=== PATIENT | female | born 1950 | race Asian ===

== ENCOUNTER 2016-08-08 13:53 | Emergency (ER) | payer SELFPAY ==
[~2016-08-08] VITALS: Ht 154.9 cm; Wt 75.6 kg
[~2016-08-08 13:53] MED LIST: ANAS1TAB PO; CALCIUM PO; LINA5TAB PO; LISI-167 PO; METF10002 PO; METO50TA82 PO; OMEP40CA6 PO; SIMV20TA3 PO
[2016-08-08] MEDS ORDERED: SODIUM CHLORIDE 0.9% 1,000 ML IV ONE (15:47)
[2016-08-08] MEDS ORDERED: ONDANSETRON 2MG/ML, 2ML IVPush ONE (16:00)
[2016-08-08 16:09] LABS: HEMOGLOBIN 13.3 g/dL (11.7-16.4)
[2016-08-08] MEDS ORDERED: MORPHINE SULFATE 4 MG/ML, 1ML ONE ×2 (16:09→17:15)
[2016-08-08] MEDS ORDERED: ONDANSETRON 2MG/ML, 2ML ONE (16:09)
[2016-08-08] MEDS: MORPHINE SULFATE 4 MG/ML, 1ML IVPush PRN ×2 (16:21→17:17)
[2016-08-08 16:22] LABS: ASPARTATE AMINO TRANSFERASE 11 U/L (15-37); BLOOD UREA NITROGEN 11 mg/dL (7-18)
[2016-08-08 16:29] LABS: IS PT STATUS REG ER OR PRE ER? YES
[2016-08-08 18:08] VITALS: BP 166/90
== END 2016-08-08 18:10 | disposition home or self-care (01) ==
LOC: ED 17:22
DX: I89.0 Lymphedema, not elsewhere classified (principal); M79.604 Pain in right leg; M79.605 Pain in left leg; M79.622 Pain in left upper arm; I10 Essential (primary) hypertension; E11.9 Type 2 diabetes mellitus without complications; E78.5 Hyperlipidemia, unspecified; K21.9 Gastro-esophageal reflux disease without esophagitis; Z85.3 Personal history of malignant neoplasm of breast; Z88.6 Allergy status to analgesic agent
CPT/HCPCS: 36415; 71010; 80053; 83880; 84484; 85025; 85610; 85730; 93005; 93970; 93971; 96361; 96374; 96375; 99285; J2405; J7030

== ENCOUNTER 2016-09-12 11:08 | Emergency (ER) | payer SELFPAY ==
[~2016-09-12] VITALS: Ht 165.1 cm; Wt 75.0 kg
[2016-09-12] MEDS ORDERED: FAMOTIDINE 20 MG/2 ML IVPush ONE (12:00)
[2016-09-12] MEDS ORDERED: MORPHINE SULFATE 4 MG/ML, 1ML IVPush PRN (12:00)
[2016-09-12] MEDS ORDERED: SODIUM CHLORIDE FLUSH 10ML SYR IVF ONE (12:00)
[2016-09-12] MEDS ORDERED: SODIUM CHLORIDE 0.9% 1,000ML IVBOLUS ONE (12:00)
[2016-09-12] MEDS ORDERED: MORPHINE SULFATE 4 MG/ML, 1ML ONE (12:19)
[2016-09-12] MEDS ORDERED: FAMOTIDINE 20 MG/2 ML ONE (12:19)
[2016-09-12 12:34] LABS: HEMOGLOBIN 14.1 g/dL (11.7-16.4)
[2016-09-12 12:45] LABS: BLOOD UREA NITROGEN 10 mg/dL (7-18)
[2016-09-12 12:48] LABS: ASPARTATE AMINO TRANSFERASE 12 U/L (15-37)
[2016-09-12] MEDS ORDERED: HYDROmorphone 1 MG/ML, 1ML ONE (14:14)
[2016-09-12] MEDS ORDERED: HYDROmorphone 2 MG/ML, 1ML IVPush PRN (14:30)
[2016-09-12 15:20] LABS: IS PT STATUS REG ER OR PRE ER? YES
[2016-09-12] MEDS ORDERED: OMNIPAQUE 350 MG/ML, 100ML BOTTLE ONE (15:43)
[2016-09-12 17:07] VITALS: BP 138/78
== END 2016-09-12 17:34 | disposition home or self-care (01) ==
LOC: ED 16:26
DX: R07.89 Other chest pain (principal); R10.30 Lower abdominal pain, unspecified; R30.0 Dysuria; E11.9 Type 2 diabetes mellitus without complications; E78.5 Hyperlipidemia, unspecified; F17.200 Nicotine dependence, unspecified, uncomplicated; I10 Essential (primary) hypertension; K21.9 Gastro-esophageal reflux disease without esophagitis; Z88.6 Allergy status to analgesic agent
CPT/HCPCS: 36415; 71010; 71275; 74177; 80053; 81003; 83605; 84145; 84484; 85025; 85610; 85730; 87040; 87210; 87491; 87591; 87808; 93005; 93971; 96361; 96374; 96375; 99285; J1170; J7030; Q9967; S0028

== ENCOUNTER 2016-10-09 14:40 | Emergency (ER) | payer MEDICARE ==
[~2016-10-09] VITALS: Ht 160 cm; Wt 72.6 kg
[2016-10-09 14:42] VITALS: BP 129/76
[2016-10-09] MEDS ORDERED: SODIUM CHLORIDE FLUSH 10ML SYR IVF ONE ×2 (15:00→19:00)
[2016-10-09] MEDS ORDERED: ONDANSETRON 2MG/ML, 2ML IVPush ONE ×2 (15:00→19:00)
[2016-10-09] MEDS ORDERED: SODIUM CHLORIDE 0.9% 1,000ML IVBOLUS ONE ×2 (15:00→19:00)
[2016-10-09 15:17] LABS: BLOOD UREA NITROGEN 11 mg/dL (7-18)
[2016-10-09 15:21] LABS: ASPARTATE AMINO TRANSFERASE 11 U/L (15-37)
[2016-10-09] MEDS ORDERED: ONDANSETRON 2MG/ML, 2ML ONE (18:54)
[2016-10-09] MEDS ORDERED: MORPHINE SULFATE 4 MG/ML, 1ML ONE (18:54)
[2016-10-09] MEDS ORDERED: MORPHINE SULFATE 4 MG/ML, 1ML IVPush PRN (19:00)
[2016-10-09] MEDS ORDERED: OMNIPAQUE 350 MG/ML, 100ML BOTTLE ONE (19:20)
== END 2016-10-09 20:59 | disposition home or self-care (01) ==
LOC: ED 20:00
DX: R10.84 Generalized abdominal pain (principal); R11.2 Nausea with vomiting, unspecified; I10 Essential (primary) hypertension; E11.9 Type 2 diabetes mellitus without complications; E78.5 Hyperlipidemia, unspecified; K21.9 Gastro-esophageal reflux disease without esophagitis; Z90.10 Acquired absence of unspecified breast and nipple; Z85.3 Personal history of malignant neoplasm of breast
CPT/HCPCS: 36415; 74177; 80053; 83690; 85025; 85610; 96361; 96374; 96375; 99285; J2405; J7030; Q9967

== ENCOUNTER 2016-11-09 18:39 | Emergency (ER) | payer MEDICARE ==
[~2016-11-09] VITALS: Ht 165.1 cm; Wt 76.0 kg
[2016-11-09 18:40] VITALS: BP 123/77
[2016-11-09] MEDS ORDERED: HYDROcodone/APAP 5/325 TABLET PO ONE (19:30)
[2016-11-09] MEDS ORDERED: HYDROcodone/APAP 5/325 TABLET ONE (19:52)
[2016-11-09] MEDS ORDERED: CEFTRIAXONE 1,000 MG IM ONE (20:00)
[2016-11-09] MEDS ORDERED: LIDOCAINE 1%, 20ML ONE (20:08)
[2016-11-09] MEDS ORDERED: CEFTRIAXONE 1,000 MG ONE (20:08)
== END 2016-11-09 20:43 | disposition home or self-care (01) ==
LOC: ED 20:37
DX: N30.00 Acute cystitis without hematuria (principal); E11.9 Type 2 diabetes mellitus without complications; E78.5 Hyperlipidemia, unspecified; I10 Essential (primary) hypertension; K21.9 Gastro-esophageal reflux disease without esophagitis; M79.7 Fibromyalgia; Z85.3 Personal history of malignant neoplasm of breast; Z90.10 Acquired absence of unspecified breast and nipple
CPT/HCPCS: 81001; 87077; 87086; 87186; 96372; 99284; J0696

== ENCOUNTER 2016-11-30 21:49 | Emergency (ER) | payer MEDICARE ==
[~2016-11-30] VITALS: Ht 162.6 cm; Wt 72.6 kg
[2016-11-30] MEDS ORDERED: ONDANSETRON ODT 4 MG PO ONE (23:30)
[2016-11-30] MEDS ORDERED: HYDROmorphone 1 MG/ML, 1ML ONE (23:30)
[2016-11-30] MEDS ORDERED: ONDANSETRON ODT 4 MG ONE (23:30)
[2016-11-30] MEDS ORDERED: HYDROmorphone 1 MG/ML, 1ML IM ONE (23:30)
[2016-11-30 23:33] LABS: ASPARTATE AMINO TRANSFERASE 14 U/L (15-37); BLOOD UREA NITROGEN 10 mg/dL (7-18)
[2016-12-01 03:04] VITALS: BP 129/67
[2016-12-01] MEDS ORDERED: OMNIPAQUE 350 MG/ML, 100ML BOTTLE ONE (04:46)
== END 2016-12-01 03:07 | disposition home or self-care (01) ==
LOC: ED 23:59
DX: M54.2 Cervicalgia (principal); M25.512 Pain in left shoulder; M79.652 Pain in left thigh; M79.662 Pain in left lower leg; E11.9 Type 2 diabetes mellitus without complications; E78.5 Hyperlipidemia, unspecified; I10 Essential (primary) hypertension; K21.9 Gastro-esophageal reflux disease without esophagitis; Z85.3 Personal history of malignant neoplasm of breast; Z90.10 Acquired absence of unspecified breast and nipple
CPT/HCPCS: 36415; 70450; 71275; 72125; 72128; 72131; 80053; 85025; 93005; 96372; 99285; J1170; Q0162; Q9967

== ENCOUNTER 2016-12-02 15:37 | Inpatient (IN) | payer MEDICARE ==
[~2016-12-02] VITALS: Ht 162.6 cm; Wt 75.0 kg
[2016-12-02] MEDS ORDERED: AMPICILLIN/SULBACTAM 3 GM in SODIUM CHLORIDE 0.9% 100 ML IVPB ONE (16:00)
[2016-12-02] MEDS ORDERED: ONDANSETRON 2MG/ML, 2ML IVPush ONE (16:00)
[2016-12-02] MEDS ORDERED: SODIUM CHLORIDE 0.9% 1,000ML IVBOLUS ONE (16:00)
[2016-12-02 16:41] LABS: BLOOD UREA NITROGEN 10 mg/dL (7-18)
[2016-12-02] MEDS ORDERED: MORPHINE SULFATE 4 MG/ML, 1ML ONE ×2 (17:52→19:30)
[2016-12-02] MEDS ORDERED: ONDANSETRON 2MG/ML, 2ML ONE (17:52)
[2016-12-02] MEDS: MORPHINE SULFATE 4 MG/ML, 1ML IVPush PRN ×2 (17:57→19:33)
[2016-12-02] MEDS ORDERED: SODIUM CHLORIDE FLUSH 10ML SYR IVF PRN (19:00)
[2016-12-02] MEDS ORDERED: ACETAMINOPHEN 325 MG TABLET PO PRN (19:30)
[2016-12-02] MEDS ORDERED: BISACODYL 10 MG SUPP PR PRN (19:30)
[2016-12-02] MEDS ORDERED: hydrALAzine 20 MG/ML, 1ML IVPush PRN (19:30)
[2016-12-02] MEDS ORDERED: POLYETHYLENE GLYCOL 17 GM PACKET PO PRN (19:30)
[2016-12-02] MEDS ORDERED: DOCUSATE 100 MG CAPSULE PO PRN (19:30)
[2016-12-03] MEDS: KETOROLAC 30 MG/1 ML IVPush PRN ×3 (00:41→23:23)
[2016-12-03] MEDS: ENOXAPARIN 40 MG/0.4 ML SQ SCH ×2 (00:42→20:06)
[2016-12-03] MEDS: INSULIN ASPART 100 UNITS/ML, PEN SQ-INSULIN SCH ×5 (00:43→20:10)
[2016-12-03] MEDS: SIMVASTATIN 20 MG TABLET PO SCH ×2 (00:43→20:06)
[2016-12-03] MEDS: SODIUM CHLORIDE 0.9% 1,000 ML IV SCH ×2 (01:55→12:45)
[2016-12-03] MEDS: AMPICILLIN/SULBACTAM 3 GM in SODIUM CHLORIDE 0.9% 100 ML IV SCH ×4 (01:55→20:05)
[2016-12-03] MEDS: TRAZODONE 50MG TABLET PO PRN ×2 (01:56→20:08)
[2016-12-03 02:40] VITALS: BP 137/76
[2016-12-03 05:53] LABS: BLOOD UREA NITROGEN 9 mg/dL (7-18)
[2016-12-03 06:04] LABS: ASPARTATE AMINO TRANSFERASE 12 U/L (15-37)
[2016-12-03 07:05] VITALS: BP 148/76
[2016-12-03] MEDS: LISINOPRIL 10 MG TABLET PO SCH (08:13)
[2016-12-03] MEDS: METOPROLOL TARTRATE 50 MG TABLET PO SCH (08:14)
[2016-12-03] MEDS: OMEPRAZOLE 20 MG CAPSULE.DR PO SCH (08:14)
[2016-12-03] MEDS: ANASTROZOLE 1 MG TABLET PO SCH (08:17)
[2016-12-03 13:49] VITALS: BP 110/65
[2016-12-03 18:43] VITALS: BP 122/69
[2016-12-04] MEDS: AMPICILLIN/SULBACTAM 3 GM in SODIUM CHLORIDE 0.9% 100 ML IV SCH ×4 (01:23→21:16)
[2016-12-04 01:38] VITALS: BP 123/72
[2016-12-04] MEDS: TRAZODONE 50MG TABLET PO PRN ×2 (01:41→23:28)
[2016-12-04 05:50] LABS: BLOOD UREA NITROGEN 10 mg/dL (7-18)
[2016-12-04 06:20] VITALS: BP 123/76
[2016-12-04] MEDS: INSULIN ASPART 100 UNITS/ML, PEN SQ-INSULIN SCH ×4 (07:00→21:17)
[2016-12-04] MEDS: KETOROLAC 30 MG/1 ML IVPush PRN ×2 (10:37→21:17)
[2016-12-04] MEDS: LISINOPRIL 10 MG TABLET PO SCH (10:41)
[2016-12-04] MEDS: METOPROLOL TARTRATE 50 MG TABLET PO SCH (10:42)
[2016-12-04] MEDS: OMEPRAZOLE 20 MG CAPSULE.DR PO SCH (10:42)
[2016-12-04 13:44] VITALS: BP 119/67
[2016-12-04] MEDS ORDERED: DIPHENHYDRAMINE/ZINC CRM 2%, 30GM TP PRN (16:00)
[2016-12-04] MEDS ORDERED: DIPHENHYDRAMINE 50 MG/ML, 1ML IVPush ONE (16:00)
[2016-12-04] MEDS ORDERED: MORPHINE SULFATE 4 MG/ML, 1ML IVPush ONE (17:00)
[2016-12-04] MEDS: ANASTROZOLE 1 MG TABLET PO SCH (17:56)
[2016-12-04 20:29] VITALS: BP 167/69
[2016-12-04] MEDS: ENOXAPARIN 40 MG/0.4 ML SQ SCH (21:16)
[2016-12-04] MEDS: SIMVASTATIN 20 MG TABLET PO SCH (21:16)
[2016-12-05 02:02] VITALS: BP 139/81
[2016-12-05] MEDS: AMPICILLIN/SULBACTAM 3 GM in SODIUM CHLORIDE 0.9% 100 ML IV SCH ×2 (02:23→08:15)
[2016-12-05] MEDS: TRAZODONE 50MG TABLET PO PRN (02:23)
[2016-12-05 06:51] VITALS: BP 143/80
[2016-12-05] MEDS: INSULIN ASPART 100 UNITS/ML, PEN SQ-INSULIN SCH (07:00)
[2016-12-05] MEDS: OMEPRAZOLE 20 MG CAPSULE.DR PO SCH (08:16)
[2016-12-05] MEDS: LISINOPRIL 10 MG TABLET PO SCH (08:16)
[2016-12-05] MEDS: METOPROLOL TARTRATE 50 MG TABLET PO SCH (08:19)
[2016-12-05] MEDS: ANASTROZOLE 1 MG TABLET PO SCH (08:22)
[2016-12-05] MEDS ORDERED: AMOX1TAB64 PO (09:36)
[2016-12-05] MEDS ORDERED: TRAM50TA2 PO (09:36)
== END 2016-12-05 12:40 | disposition home or self-care (01) | DRG 603 ==
LOC: ED 18:41 → EDIP 18:42 → ED 18:48 → 3NE 19:54 → DCLOUNGE 12-05 11:31
PROVIDERS: ADMIT Internal Medicine; ATTEND Internal Medicine
DX: L03.114 Cellulitis of left upper limb (principal); I50.22 Chronic systolic (congestive) heart failure; I11.0 Hypertensive heart disease with heart failure; D72.828 Other elevated white blood cell count; E11.9 Type 2 diabetes mellitus without complications; E78.5 Hyperlipidemia, unspecified; Z51.5 Encounter for palliative care; K21.9 Gastro-esophageal reflux disease without esophagitis; Z79.4 Long term (current) use of insulin; Z85.3 Personal history of malignant neoplasm of breast; Z87.440 Personal history of urinary (tract) infections; Z90.12 Acquired absence of left breast and nipple; Z79.899 Other long term (current) drug therapy; Z88.6 Allergy status to analgesic agent
CPT/HCPCS: 36415; 70450; 71275; 72125; 72128; 72131; 80048; 80053; 82040; 82962; 83036; 83735; 84439; 84443; 85025; 87040; 93005; 96365; 96375; J0295; J1650; J1815; J1885; J2405; J1200; J7030

== ENCOUNTER 2016-12-16 15:29 | Emergency (ER) | payer MEDICARE ==
[~2016-12-16] VITALS: Ht 165.1 cm; Wt 71.2 kg
[~2016-12-16 15:29] MED LIST changes: +AMOX1TAB64 PO; +TRAM50TA2 PO
[2016-12-16] MEDS ORDERED: SODIUM CHLORIDE 0.9% 1,000 ML IV ONE (15:55)
[2016-12-16] MEDS ORDERED: MORPHINE SULFATE 4 MG/ML, 1ML IVPush PRN (16:00)
[2016-12-16] MEDS ORDERED: SODIUM CHLORIDE 0.9% 1,000ML IVBOLUS ONE ×2 (16:00→19:30)
[2016-12-16] MEDS ORDERED: ONDANSETRON 2MG/ML, 2ML IVPush ONE (16:00)
[2016-12-16 16:25] LABS: ASPARTATE AMINO TRANSFERASE 14 U/L (15-37); BLOOD UREA NITROGEN 9 mg/dL (7-18)
[2016-12-16 16:32] LABS: IS PT STATUS REG ER OR PRE ER? YES
[2016-12-16] MEDS ORDERED: LORazepam 2 MG/ML, 1ML IVPush ONE (17:00)
[2016-12-16] MEDS ORDERED: ONDANSETRON 2MG/ML, 2ML ONE (17:14)
[2016-12-16] MEDS ORDERED: MORPHINE SULFATE 4 MG/ML, 1ML ONE (17:14)
[2016-12-16] MEDS ORDERED: LORazepam 2 MG/ML, 1ML ONE (18:15)
[2016-12-16 20:26] VITALS: BP 140/75
== END 2016-12-16 21:20 | disposition home or self-care (01) ==
LOC: ED 21:00
DX: R10.84 Generalized abdominal pain (principal); R07.89 Other chest pain; R19.7 Diarrhea, unspecified; F17.200 Nicotine dependence, unspecified, uncomplicated; E11.9 Type 2 diabetes mellitus without complications; E78.5 Hyperlipidemia, unspecified; I10 Essential (primary) hypertension; K21.9 Gastro-esophageal reflux disease without esophagitis; Z85.3 Personal history of malignant neoplasm of breast
CPT/HCPCS: 36415; 71010; 80053; 81001; 83605; 83690; 84484; 85025; 85379; 87086; 93005; 96361; 96374; 96375; 99285; J2060; J2405; J7030

== ENCOUNTER 2017-01-13 11:17 | Emergency (ER) | payer MEDICARE ==
[~2017-01-13] VITALS: Ht 162.6 cm; Wt 71.1 kg
[2017-01-13] MEDS ORDERED: SODIUM CHLORIDE FLUSH 10ML SYR IVF ONE (12:30)
[2017-01-13] MEDS ORDERED: SODIUM CHLORIDE 0.9% 1,000ML IVBOLUS ONE (12:30)
[2017-01-13 12:48] LABS: HEMATOCRIT 41.7 % (34.6-47.8); HEMOGLOBIN 13.8 g/dL (11.7-16.4); WHITE BLOOD COUNT 7.9 x10^3/uL (3.4-10)
[2017-01-13] MEDS ORDERED: DIAZEPAM 5 MG TABLET PO ONE (13:00)
[2017-01-13] MEDS ORDERED: ACETAMINOPHEN 325 MG TABLET PO ONE (13:00)
[2017-01-13 13:06] LABS: BLOOD UREA NITROGEN 9 mg/dL (7-18)
[2017-01-13 13:38] LABS: IS PT STATUS REG ER OR PRE ER? YES
[2017-01-13] MEDS ORDERED: GADOBUTROL 7.5 MMOL/7.5 ML PFS ONE (15:07)
[2017-01-13] MEDS ORDERED: ACETAMINOPHEN 325 MG TABLET ONE (16:03)
[2017-01-13] MEDS ORDERED: DIAZEPAM 5 MG TABLET ONE (16:03)
[2017-01-13] MEDS ORDERED: FENTANYL PF 100 MCG/2ML ONE (16:20)
[2017-01-13] MEDS ORDERED: FENTANYL PF 100 MCG/2ML IV ONE (16:30)
[2017-01-13 17:31] VITALS: BP 131/78
== END 2017-01-13 17:33 | disposition home or self-care (01) ==
LOC: ED 17:13
DX: R20.0 Anesthesia of skin (principal); E11.9 Type 2 diabetes mellitus without complications; E78.5 Hyperlipidemia, unspecified; I10 Essential (primary) hypertension; K21.9 Gastro-esophageal reflux disease without esophagitis; Z90.10 Acquired absence of unspecified breast and nipple
CPT/HCPCS: 36415; 70553; 72156; 72157; 72158; 80048; 82040; 84484; 85025; 93005; 96361; 96374; 99285; A9585; J3010; J7030

== ENCOUNTER 2017-06-30 20:43 | Emergency (ER) | payer MEDICAID, MEDICARE ==
[~2017-06-30] VITALS: Ht 165.1 cm; Wt 75.4 kg
[2017-06-30 22:10] LABS: BASOPHILS # (AUTO) 0.06 x10^3/uL (0-0.1); BASOPHILS % (AUTO) 1 % (0-1); EOSINOPHILS # (AUTO) 0.15 x10^3/uL (0-0.4); EOSINOPHILS % (AUTO) 2 % (1-7); LYMPHOCYTES # (AUTO) 2.87 x10^3/uL (1-3.4); LYMPHOCYTES % (AUTO) 36 % (22-44); MD NO; MEAN CORPUSCULAR HEMOGLOBIN 30.8 pg (27.0-34.8); MEAN CORPUSCULAR HGB CONC 33.4 g/dL (32.4-35.8); MEAN CORPUSCULAR VOLUME 92.1 fL (80-100); MEAN PLATELET VOLUME 8.5 fL (7.4-10.4); MONOCYTES # (AUTO) 0.46 x10^3/uL (0.2-0.8); MONOCYTES % (AUTO) 6 % (2-9); NEUTROPHILS # (AUTO) 4.44 x10^3/uL (1.8-6.8); NEUTROPHILS % (AUTO) 56 % (42-75); PLATELET COUNT 373 x10^3/uL (130-400); RED BLOOD COUNT 4.52 x10^6/uL (3.82-5.3); RED CELL DISTRIBUTION WIDTH 13.6 % (9.6-15.2)
[2017-06-30 22:23] LABS: ALANINE AMINOTRANSFERASE 18 U/L (12-78); ALBUMIN 3.7 g/dL (3.4-5.0); ANION GAP 8 mmol/L (5-15); CALCIUM 8.8 mg/dL (8.5-10.1); CHLORIDE 107 mmol/L (98-107); CREATININE 0.64 mg/dL (0.55-1.02)
[2017-06-30 22:25] LABS: ALKALINE PHOSPHATASE 110 U/L (45-117); BILIRUBIN,TOTAL 0.1 mg/dL (0.2-1.0)
[2017-06-30] MEDS ORDERED: KETOROLAC 30 MG/1 ML IM ONE (23:00)
[2017-06-30] MEDS ORDERED: KETOROLAC 30 MG/1 ML IVPush ONE (23:00)
[2017-06-30] MEDS ORDERED: KETOROLAC 30 MG/1 ML ONE (23:13)
[2017-06-30 23:19] VITALS: BP 122/70
== END 2017-06-30 23:50 | disposition home or self-care (01) ==
LOC: ED 23:10
DX: M79.622 Pain in left upper arm (principal); G89.29 Other chronic pain; I97.2 Postmastectomy lymphedema syndrome; K21.9 Gastro-esophageal reflux disease without esophagitis; I10 Essential (primary) hypertension; E11.9 Type 2 diabetes mellitus without complications; E78.5 Hyperlipidemia, unspecified; Z85.3 Personal history of malignant neoplasm of breast
CPT/HCPCS: 36415; 80053; 85025; 93971; 96372; 99285; J1885

== ENCOUNTER 2019-05-27 15:29 | Emergency (ER) | payer MEDICARE, MEDICAID ==
[~2019-05-27] VITALS: Ht 165.1 cm; Wt 76.0 kg
[~2019-05-27 15:29] MED LIST changes: +OMEP40CA42 PO; -OMEP40CA6 PO
[2019-05-27 17:13] LABS: MICROSCOPIC NOT IND
[2019-05-27 17:22] LABS: CULTURE INDICATED? NO
--- NOTE | 2019-05-27 17:25 | NUR ---
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
--- NOTE | 2019-05-27 17:45 | NUR ---
PT HAS CO OF FLANK PAIN AND BACK PAIN. DENIES PAINFUL OR TROUBLE URINATING. DENIES TRAUMA OR FALLS. NO OBVIOUS INJURY. UA COLLECTED FROM LOBBY. PT NOT IN ANY DISTRESS
--- NOTE | 2019-05-27 18:52 | NUR ---
RN AT BEDSIDE FOR ASSIST WITH PELVIC EXAM
[2019-05-27] MEDS ORDERED: HYDROcodone/APAP 5/325 TABLET ONE (18:58)
[2019-05-27] MEDS ORDERED: LORazepam 1MG TABLET ONE (18:59)
[2019-05-27] MEDS ORDERED: HYDROcodone/APAP 5/325 TABLET PO ONE (19:00)
--- NOTE | 2019-05-27 19:04 | NUR ---
PT MEDICATED FOR PAIN. IN IMAGING NOW.
[2019-05-27 19:09] VITALS: BP 129/74
--- NOTE | 2019-05-27 19:11 | NUR ---
GIVEN WARM BLANKET, PT COMFORTABLE, WATCHING TV. NO NEEDS AT THIS TIME
[2019-05-27] MEDS ORDERED: KETOROLAC 30 MG/1 ML IM ONE (19:30)
--- NOTE | 2019-05-27 19:36 | NUR ---
MED STUDENT AT BEDSIDE, TO DC SOON
== END 2019-05-27 19:39 | disposition home or self-care (01) ==
LOC: ED 19:33
DX: R10.2 Pelvic and perineal pain (principal); I10 Essential (primary) hypertension; E11.9 Type 2 diabetes mellitus without complications; K21.9 Gastro-esophageal reflux disease without esophagitis; F17.200 Nicotine dependence, unspecified, uncomplicated; Z90.710 Acquired absence of both cervix and uterus; Z85.3 Personal history of malignant neoplasm of breast
CPT/HCPCS: 74176; 81003; 99284

== ENCOUNTER 2019-09-06 20:57 | Emergency (ER) | payer MEDICAID, MEDICARE ==
[~2019-09-06] VITALS: Ht 160 cm; Wt 77.1 kg
[~2019-09-06 20:57] MED LIST changes: +SIMV20TA19 PO; -SIMV20TA3 PO
--- NOTE | 2019-09-06 21:34 | NUR ---
PT TO ED WITH C/O LEFT UPPER ARM SWELLING WITH PAIN X2 DAYS. REPORTS CONSTANT SWELLING SINCE MASTECTOMY IN 2013, BUT SWELLING HAS BECOME WORSE IN LAST 2-3 WEEKS. PT ALSO REPORTS SOME SWELLING IN LEFT LEG, NONPITTING. PT REPORTS SOME DIZZINESS IN THE MORNING FOR LAST X2 WEEKS, DENIES ANY OTHER C/O AT THIS TIME. PT CONNECTED TO MONITORING, CALL LIGHT WITHIN REACH, ALL SAFETY MEASURES IN PLACE. FAMILY AT BS FOR SUPPORT.
[2019-09-06 22:04] LABS: BASOPHILS # (AUTO) 0.07 x10^3/uL (0-0.1); BASOPHILS % (AUTO) 1 % (0-1); EOSINOPHILS # (AUTO) 0.14 x10^3/uL (0-0.4); EOSINOPHILS % (AUTO) 2 % (1-7); LYMPHOCYTES # (AUTO) 2.45 x10^3/uL (1-3.4); LYMPHOCYTES % (AUTO) 33 % (22-44); MD NO; MEAN CORPUSCULAR HEMOGLOBIN 29.3 pg (27.0-34.8); MEAN CORPUSCULAR VOLUME 88.7 fL (80-100); MEAN PLATELET VOLUME 8.8 fL (7.4-10.4); MONOCYTES # (AUTO) 0.43 x10^3/uL (0.2-0.8); MONOCYTES % (AUTO) 6 % (2-9); NEUTROPHILS # (AUTO) 4.33 x10^3/uL (1.8-6.8); NEUTROPHILS % (AUTO) 58 % (42-75); PLATELET COUNT 361 x10^3/uL (130-400); RED CELL DISTRIBUTION WIDTH 14.7 % (9.6-15.2)
[2019-09-06 22:12] LABS: ALBUMIN 3.5 g/dL (3.4-5.0); ANION GAP 4 mmol/L (5-15); CALCIUM 9.1 mg/dL (8.5-10.1); CHLORIDE 110 mmol/L (98-107); CREATININE 0.66 mg/dL (0.55-1.02)
[2019-09-06 22:15] VITALS: BP 125/69
[2019-09-06 22:16] LABS: TROPONIN I < 0.015 ng/mL (0.000-0.045)
--- NOTE | 2019-09-06 22:27 | NUR ---
5 VS incorrect time.
[2019-09-06] MEDS ORDERED: OXYcodone/APAP 5/325MG TABLET ONE (22:45)
[2019-09-06] MEDS ORDERED: OXYcodone/APAP 5/325MG TABLET PO ONE (23:00)
== END 2019-09-07 00:02 | disposition home or self-care (01) ==
LOC: ED 23:30
DX: M79.622 Pain in left upper arm (principal); R07.89 Other chest pain; I97.2 Postmastectomy lymphedema syndrome; I10 Essential (primary) hypertension; E11.9 Type 2 diabetes mellitus without complications; E78.5 Hyperlipidemia, unspecified; K21.9 Gastro-esophageal reflux disease without esophagitis; F17.200 Nicotine dependence, unspecified, uncomplicated; R94.31 Abnormal electrocardiogram [ECG] [EKG]; Z90.710 Acquired absence of both cervix and uterus; Z85.3 Personal history of malignant neoplasm of breast
CPT/HCPCS: 36415; 71045; 80048; 82040; 84484; 85025; 93005; 99285